=== PATIENT | male | born 1930 | race Asian ===

== ENCOUNTER → 2017-01-15 | Outpatient (CLI) | payer OTHER, MEDICAID ==
[~2017-01-15] MED LIST: ASPI-825 PO; ATOR20TA86 PO; DOCU250C16 PO; DOXA4TAB3 PO; FINA5TAB41 PO; FISH1CAP49 PO; FLUT1DIS3 IH; LEVO5TAB13 PO; METF10002 PO; MULT1TAB70 PO; SIMV10TA6 PO; SULF1TAB3 PO; TIOT185 IH; VALS80TA2 PO
== END | disposition home or self-care (01) ==
LOC: RADPV 08:39
PROVIDERS: ATTEND Internal Medicine Nephrology
DX: N18.9 Chronic kidney disease, unspecified (principal)
CPT/HCPCS: 76770